=== PATIENT | female | born 1975 | race Caucasian/White ===

== ENCOUNTER 2016-12-01 05:54 | Day surgery (SDC) | payer OTHER ==
[~2016-12-01] VITALS: Ht 160 cm; Wt 77.8 kg
[2016-12-01] VITALS (11 sets, daily range): BP systolic 103–135; BP diastolic 58–70; PULSE 60–98; RESP 11–18; O2SAT 96–100
[~2016-12-01 05:54] MED LIST: Lactated Ringer's 1,000 ML IV ONE; PREN-100 PO
[2016-12-01] MEDS ORDERED: fentaNYL-PF 50 mCg/mL 2 mL Inj ONE (05:55)
[2016-12-01] MEDS ORDERED: Dexamethasone 4 mg/mL Inj ONE (05:55)
[2016-12-01] MEDS ORDERED: EPHEDrine/NS 5 mg/mL 5 mL Syringe ONE (05:55)
[2016-12-01] MEDS ORDERED: Propofol 10,000 mCg/mL 20 mL Inj ONE (05:55)
[2016-12-01] MEDS ORDERED: Ondansetron 2 mg/mL 2 mL Inj ONE (05:55)
[2016-12-01] MEDS ORDERED: CeFAZolin 2 Gm/50 mL D5W IV Premix IV ONE (06:00)
--- NOTE | 2016-12-01 07:21 | PCM.HPANE ---
Patient Data Date of Service: Dec 01, 2016 Surgeon Admitting Provider: Attending Provider:Kwasi Pineda MD Primary Care Physician:Shannan Field CNM Other Provider:Saulo Allen Anesthesia Reason for Visit Umbilical Hernia Ht/WT & BMI Height (Feet): 5 Height (Inches): 3.00 Weight (Kilograms): 77.8 Body Mass Index 30.00 Allergies Coded Allergies: No Known Allergies (Unverified , 11/27/16) Past Anesthesia History Anesthesia History: Denies:: Abnormal Airway, Anesthesia Reactions, Difficult Intubation, Fam Anesthesia Reaction, Malignant Hyperthermia Diabetes History Hx Diabetes?: No MRSA MRSA: No Medications Hypertension Medication: No Home Meds Incl Beta Clara: No Reported Medications Vits #90/Iron Fum/FA ( Formula Tablet)1 Each Tablet1 Each PO DAILY 11/27/16 History History of ENT Problems?: No HEENT History: Denies:: Abnormal Airway Cataracts Difficult Intubation Dysphagia Glaucoma Hearing Problem Sinus Problem TMJ Hx of Heart Problems?: No Cardiovascular History: Denies:: AICD Atrial Fibrillation Chest Pain Congestive Heart Failure Coronary Artery Disease Edema Heart Murmur Hypertension Irregular Heartbeat Pacemaker Peripheral Vascular Rheumatic Fever Thrombophlebitis Hx of Respiratory Problem?: No Respiratory History: Denies:: Asthma COPD Emphysema Oxygen Administration Pneumonia Pulmonary Embolism Tuberculosis Use of C-PAP Machine Hx Neurologic Problems?: Yes Neurological History: Denies:: Alzheimer's Disease CVA Dementia Dizziness Headaches Multiple Sclerosis Parkinson's Disease Seizures Hx of GI Problems?: No Gastrointestinal History: Denies:: Cirrhosis Gall Bladder Disease Gastroesphageal Reflux Gastrointestinal Bleeding Heartburn Hepatitis Hiatal Hernia Liver Disease Rectal Bleeding Other GI Pertinent History: umbilical hernia current admission problem Hx of Problems?: Yes Genitourinary History: Denies:: Kidney Stones Urinary Tract Infection Female Hx: Denies:: Currently Endometriosis Pelvic Inflammatory Problems with Breasts? Skin History: Denies:: History Skin Disorders? Pressure Ulcers Hx Musculoskeletal Problems?: No Musculoskeletal History: Denies:: Back Injury Fibromyalgia Joint Replacement Musculoskeletal Trauma Myasthenia Gravis Osteoarthritis Systemic Lupus Hx of Psycho/Social Problems?: No Psycho Social History: Denies:: Anxiety Hx Depression Hx Surgeries?: Yes (knee scope, tonsil) Hx Any Other Health Problems?: Yes Other History: Positive for:: Hospitalization (2008- ) Denies:: Cancer Endocrine Disease Thyroid Disease History Blood Transfusions: Positive for:: Accept Blood Products? Denies:: Blood Transfusions Hx Diabetes: No Hx Alcohol Use: NoHx Substance Use: No Smoking Status: Never Smoker Have You Smoked inLast 12 mo: No Stop/Bang S-Snoring: Do You Snore Loudly: No T-Tired: feel tired, fatigued: No O-Obsered: Observed not breath: No P-Blood Pressure: treated: No B- Body Mass Index > 35 kg/m2: No A- Age over 50: No N- Neck Large Circumference: No G- Gender Male: No KEVIN Total Score: 0 KEVIN Risk Assessment: Low Risk, <3 Yes Risk Assessment Category Category 1A: Patient has history of documented sleep apnea, and HAS NOT received any narcotic, sedative or anesthesia administration during this stay. Category 1B: Patient has history of documented sleep apnea, and HAS received any narcotic , sedative or anesthesia administration during this stay Category 2: Patient has SUSPECTED Obstructive Sleep Apnea, and HAS received any narcotic , sedative or anesthesia administration during this stay. Category 3: Patient has SUSPECTED Obstructive Sleep Apnea and HAS NOT received narcotic, sedative or anesthesia administration during this stay. Category 4: Outpatient in Procedural Areas with known sleep apnea or who screen positive for High Risk via the STOP/BANG questionnaire. Exam Exam Vital Signs Vital Signs Date Time Temp Pulse Resp B/P Pulse Ox O2 Delivery O2 Flow Rate FiO2 12/01/16 06:20 36.2 63 18 103/61 98 Room Air General Appearance: Alert, Oriented X3, Cooperative, No Acute Distress HEENT/AIRWAY: MP 2 Lungs: Normal Air Movement Heart: Exam Unremarkable Meds/Labs/Diagnostics Admission Meds Current Medications Lactated Ringer's (Lr) 1,000 ml @ 120 mls/hr Q8H20M ONCE IV Last administered on 12/01/16t 06:00; Start 12/01/16 at 05:00; Stop 12/01/16 at 13:19 Plan Impression Patient chart reviewed, patient interviewed and anesthestic plan with risks, benefits, and alternatives discussed, and informed consent obtained. NPO Status: 10PM ASA Physical Status: ASA1 Plus Emergency Anesthetic Plan: GA Bene/Risks/Altern/Consents: Yes HP Complete Prior to Induction: Yes Ramu Bennett MD Dec 01, 2016 07:08
[2016-12-01] MEDS ORDERED: Bupivacaine-MPF 0.5% 30 mL Inj INFILTRATE ONE (07:40)
[2016-12-01] MEDS ORDERED: Lactated Ringer's 500 ML IV PRN (07:56)
[2016-12-01] MEDS ORDERED: Lactated Ringer's 1,000 ML IV SCH (07:56)
[2016-12-01] MEDS ORDERED: EPHEDrine Sulfate 50 mg/mL Inj IVPUSH PRN (08:00)
[2016-12-01] MEDS ORDERED: MetoCLOpramide 5 mg/mL 2 mL Inj IVPUSH PRN (08:00)
[2016-12-01] MEDS ORDERED: Labetalol 5 mg/mL 4 mL Inj IV PRN (08:00)
[2016-12-01] MEDS ORDERED: Atropine 0.4 mg/mL Inj IVPUSH PRN (08:00)
[2016-12-01] MEDS ORDERED: HYDROmorphone 1 mg/mL Inj IVPUSH PRN (08:00)
[2016-12-01] MEDS ORDERED: hydrALAZINE 20 mg/mL Inj IVPUSH PRN (08:00)
[2016-12-01] MEDS ORDERED: Phenylephrine 10,000 mCg/mL Inj IVPUSH PRN (08:00)
[2016-12-01] MEDS ORDERED: Dexamethasone 4 mg/mL Inj IVPUSH PRN (08:00)
[2016-12-01] MEDS ORDERED: Ondansetron 2 mg/mL 2 mL Inj IVPUSH PRN (08:00)
--- NOTE | 2016-12-01 08:41 | PCM.SURGPO ---
Immediate Operative Note Date of Surgery: Dec 01, 2016 Pre Operative Diagnosis Incarcerated umbilical hernia Post Operative Diagnosis Incarcerated umbilical hernia Procedure Primary repair of Umbilical hernia Surgeon and Insulation And Flooring Assembler Surgeon: Kwasi Pineda MD Assistants: Flavia REID & Misty Yin MS3 Findings Incarcerated fat - 1.5cm defect. Fixed with 0 Prolenes Complications There were no periprocedural complications identified. Surgical Specimen Removed: No Specimen sent to Pathology: No Anesthetic Administered: GA Grafts, Implants: None Output, Estimated Blood Loss: 2 Blood Admin during surgery: No Attending Statement The Boring Machine Operator Horizontal was medically necessary for the successful completion of the operation Kwasi Pineda MD Dec 01, 2016 08:41
[2016-12-01] MEDS ORDERED: OXYC5TAB72 PO (08:42)
[2016-12-01] MEDS ORDERED: POLY17PO6 PO (08:42)
[2016-12-01] MEDS: fentaNYL-PF 50 mCg/mL 2 mL Inj IVPUSH PRN ×2 (08:56→09:08)
--- NOTE | 2016-12-01 08:56 | PCM.ANEP1 ---
Post Anesthesia Phase 1 PACU Phase 1 Assessment Date of Service: Dec 01, 2016 Vital Signs Vital Signs Date Time Temp Pulse Resp B/P Pulse Ox O2 Delivery O2 Flow Rate FiO2 12/01/16 08:50 88 14 134/70 98 Nasal Cannula 2 12/01/16 08:46 36.4 98 13 135/68 100 Nasal Cannula 4 12/01/16 06:20 36.2 63 18 103/61 98 Room Air Anesthetic Administered: GA Level of Alertness: Sleepy, easy to arouse MAYERS's with Equal Strength: Yes Pain: No Nausea or Vomiting: No Oxygen Delivery: Nasal Cannula Lungs: Normal Air Movement Ramu Bennett MD Dec 01, 2016 08:56
--- NOTE | 2016-12-01 09:48 | OP ---
[address] [address] OPERATIVE REPORT PATIENT: BRIAN DOLL : 1975 MR#: [id number] ADMIT: 12/01/2016 JOB ID: [id number] DATE OF SURGERY: 12/01/2016 SURGEON: Kwasi Pineda MD SENIOR CAREGIVER: Flavia Kebede PA-C and Misty Yin MS-3 PREOPERATIVE DIAGNOSIS(ES): Incarcerated umbilical hernia. POSTOPERATIVE DIAGNOSIS(ES): Incarcerated umbilical hernia. PROCEDURE PERFORMED: Open primary repair of incarcerated umbilical hernia. COMPLICATIONS: None. ANESTHESIA: LMA with local. INDICATIONS: The patient is a 40-year-old lady who I initially met a year ago in November 2015. She has had a history of an umbilical hernia during for over 10 years and by the time I saw her back she was again with her 7th child so we decided to wait until delivery and after discussing the risks, benefits, and alternatives, she is here today for open repair possibly with mesh. PROCEDURE DETAILS: She was placed in supine position. Underwent smooth induction of general anesthesia. Abdomen was prepped and draped in the usual sterile fashion. Surgical time-out was undertaken using safety checklist, and all were in agreement. We began by making an infraumbilical curvilinear incision and divided the skin and subcutaneous tissue and dissected the obvious umbilical hernia sac circumferentially away from the subcutaneous fat. After that I detached the sac from the skin and attempted to reduce the hernia and was not successful. At that point I opened the sac and excised a small piece of incarcerated fat and after that I was able to reduce the rest of the hernia. After that I defined the fascial edges by dissecting the hernia and the sac away from the fascia and then closed the defect with interrupted 0-Prolene sutures. The closure came together well without any obvious tension. After ensuring hemostasis, I recreated the umbilical stalk by anchoring the skin to the fascia and then closed the skin in layers of 3-0 Vicryl, 4-0 interrupted, followed by 4-0 Monocryl subcuticular. Steri-Strips and sterile dressing were applied. Patient was recovered from anesthesia and was taken to the recovery room in stable condition. CUAUHTEMOC
--- NOTE | 2016-12-01 10:04 | PCM.ANEP2 ---
Post Anesthesia Evaluation ASA/CMS Post Anesthesia Date of Service: Dec 01, 2016 VS in Patient's Normal Range?: Yes Resp Stable; Airway Patent?: Yes CV Function & Hydration Stable: Yes Mental Status Recovered?: Yes Pain control Satisfactory?: Yes N/V Control Satisfactory?: Yes Ramu Bennett MD Dec 01, 2016 10:04
[2016-12-02] MEDS ORDERED: Polyethylene Glycol (PEG) 17 Gm Powder PO SCH (08:30)
== END 2016-12-01 23:59 | disposition home or self-care (01) ==
LOC: SAS 05:54
PROVIDERS: ATTEND Student in an Organized Health Care Education/Training Program
DX: K42.0 Umbilical hernia with obstruction, without gangrene (principal); N39.3 Stress incontinence (female) (male)
CPT/HCPCS: 49585; J0690; J1100; J2405; J7120

== ENCOUNTER 2017-04-03 07:12 | Day surgery (SDC) | payer OTHER ==
[2017-04-03] VITALS (7 sets, daily range): BP systolic 94–147; BP diastolic 52–76; PULSE 63–96; RESP 13–18; O2SAT 97–100
[~2017-04-03] VITALS: Ht 162.6 cm; Wt 75.8 kg
[2017-04-03] MEDS: Lactated Ringer's 1,000 ML IV SCH ×2 (07:10→09:17)
[~2017-04-03 07:12] MED LIST changes: +Clindamycin 600 mg/50 mL D5W IV SCH; -Lactated Ringer's 1,000 ML IV ONE
[2017-04-03] MEDS ORDERED: Propofol 10,000 mCg/mL 20 mL Inj ONE ×2 (07:13)
[2017-04-03] MEDS ORDERED: Dexamethasone 4 mg/mL Inj ONE ×2 (07:13)
[2017-04-03] MEDS ORDERED: Ondansetron 2 mg/mL 2 mL Inj ONE ×2 (07:13)
[2017-04-03] MEDS ORDERED: Phenylephrine/NS-PF 100 mCg/mL 5 mL Syringe IVPUSH ONE (07:13)
[2017-04-03] MEDS ORDERED: fentaNYL-PF 50 mCg/mL 2 mL Inj ONE (07:13)
[2017-04-03] MEDS ORDERED: MetoCLOpramide 5 mg/mL 2 mL Inj ONE ×2 (07:13)
[2017-04-03] MEDS ORDERED: Lidocaine PF 1% 30 mL Inj ONE ×2 (07:13)
[2017-04-03] MEDS ORDERED: Phenylephrine/NS 100 mCg/mL 10 mL Syringe IVPUSH ONE (07:13)
--- NOTE | 2017-04-03 09:08 | PCM.HPANE ---
Patient Data Date of Service: April 03, 2017 Surgeon Admitting Provider: Attending Provider:Kaela Burden MD Primary Care Physician:Shannan Field CNM Other Provider:Saulo Allen Anesthesia Reason for Visit Female Stress Incontinence Ht/WT & BMI Height (Feet): 5 Height (Inches): 4 Weight (Kilograms): 75.8 Body Mass Index 28.00 Allergies Coded Allergies: codeine (Verified Adverse Reaction, Severe, hot, itchy, 03/31/17) Uncoded Allergies: narcotic antagonist (Adverse Reaction, Severe, itching,rash,dizziness, 03/31) Past Anesthesia History Anesthesia History: Denies:: Abnormal Airway, Anesthesia Reactions, Difficult Intubation, Fam Anesthesia Reaction, Fam Malignant Hypertherm, Malignant Hyperthermia Diabetes History Hx Diabetes?: No MRSA MRSA: No Medications Hypertension Medication: No Home Meds Incl Beta Clara: No Reported Medications [no med's] No Conflict Check 04/03/17 Discontinued Reported Medications Vits #90/Iron Fum/FA ( Formula Tablet)1 Each Tablet1 Each PO DAILY 11/27/16 History History of ENT Problems?: Yes HEENT History: Denies:: Abnormal Airway Cataracts Difficult Intubation Dysphagia Hearing Problem Sinus Problem TMJ Denture Type: None Teeth Condition: Broken Teeth Tooth Decay Missing Teeth Other HEENT Pertinent History: S/P TONSILLECTOMY Hx of Heart Problems?: Yes Cardiovascular History: Denies:: AICD Atrial Fibrillation Chest Pain Congestive Heart Failure Edema Heart Murmur (ECHO 1999,12/2007, 05/2009 EF 60%-CANNOT RULE OUT SMALL PFO) Hypertension Irregular Heartbeat Pacemaker Rheumatic Fever Thrombophlebitis Hx of Respiratory Problem?: No Respiratory History: Denies:: Asthma COPD Emphysema Oxygen Administration Pneumonia Pulmonary Embolism Tuberculosis Use of C-PAP Machine Hx Neurologic Problems?: Yes Neurological History: Positive for:: Dementia (HOSPITALIZED 05/2009 FOR ACUTE DEMENTIA) Headaches (BASILAR MIGRAINE W/ LOC HOSPITALIZED) Denies:: Alzheimer's Disease CVA Dizziness Multiple Sclerosis Parkinson's Disease Seizures Other Neurological Pertinent: two episodes of acute encephalopathy 2008, 2015 - both resolved - ? PFO ? other causes - first episode attributed to atypical migraine, second episode attributed to anxiety; associated also with hemiparesis and/or neuropathy Hx of GI Problems?: Yes Gastrointestinal History: Denies:: Gastroesphageal Reflux Other GI Pertinent History: S/P UMBILICAL HERNIA RPR Hx of Problems?: Yes Genitourinary History: Denies:: Kidney Stones Urinary Tract Infection Female Hx: Denies:: Currently Endometriosis Pelvic Inflammatory Problems with Breasts? Skin History: Denies:: History Skin Disorders? Pressure Ulcers Hx Musculoskeletal Problems?: Yes Musculoskeletal History: Positive for:: Musculoskeletal Trauma (S/P RT KNEE SCOPE) Denies:: Back Injury Joint Replacement Systemic Lupus Hx of Psycho/Social Problems?: Yes Psycho Social History: Positive for:: Anxiety (INTERMITTANT - not Rx'd) Denies:: Hx Depression Hx Surgeries?: Yes (knee scope, tonsil,UMBILICAL HERNIA RPR) Hx Any Other Health Problems?: Yes Other History: Positive for:: Hospitalization (2008- ) Denies:: Cancer Endocrine Disease Thyroid Disease History Blood Transfusions: Denies:: Blood Transfusions Hx Diabetes: No Hx Alcohol Use: NoHx Substance Use: No Smoking Status: Never Smoker Have You Smoked inLast 12 mo: No Stop/Bang Treated for Sleep Apnea?: No Do You Have a CPAP Machine?: No S-Snoring: Do You Snore Loudly: No T-Tired: feel tired, fatigued: Yes O-Obsered: Observed not breath: No P-Blood Pressure: treated: No B- Body Mass Index > 35 kg/m2: No A- Age over 50: No N- Neck Large Circumference: No G- Gender Male: No KEVIN Total Score: 1 KEVIN Risk Assessment: Low Risk, <3 Yes Risk Assessment Category Category 1A: Patient has history of documented sleep apnea, and HAS NOT received any narcotic, sedative or anesthesia administration during this stay. Category 1B: Patient has history of documented sleep apnea, and HAS received any narcotic , sedative or anesthesia administration during this stay Category 2: Patient has SUSPECTED Obstructive Sleep Apnea, and HAS received any narcotic , sedative or anesthesia administration during this stay. Category 3: Patient has SUSPECTED Obstructive Sleep Apnea and HAS NOT received narcotic, sedative or anesthesia administration during this stay. Category 4: Outpatient in Procedural Areas with known sleep apnea or who screen positive for High Risk via the STOP/BANG questionnaire. Exam Exam Vital Signs Vital Signs Date Time Temp Pulse Resp B/P Pulse Ox O2 Delivery O2 Flow Rate FiO2 04/03/17 07:42 36.2 64 18 99/55 97 Room Air General Appearance: Alert, Oriented X3, Cooperative, No Acute Distress HEENT/AIRWAY: MP 2, Neck Movement (FROM), Mouth Opening (>3), Other (tmd>3) Lungs: Clear to Auscultation, Normal Air Movement Heart: Exam Unremarkable, Regular Rate/Rhythm, Normal S1, Other (SPLIT S2) Meds/Labs/Diagnostics Admission Meds Current Medications Lactated Ringer's (Lr) 1,000 ml @ 120 mls/hr Q8H20M IV Last administered on t 07:10; Start 04/03/17 at 05:00; Stop 04/03/17 at 13:19 Plan Impression Patient chart reviewed, patient interviewed and anesthestic plan with risks, benefits, and alternatives discussed, and informed consent obtained. ASA Physical Status: ASA2 Mod Systemic Disease Anesthetic Plan: GA Bene/Risks/Altern/Consents: Yes HP Complete Prior to Induction: Yes Derek sOullivan MD April 03, 2017 09:08
[2017-04-03] MEDS ORDERED: no med's (09:14)
[2017-04-03] MEDS ORDERED: Lactated Ringer's 1,000 ML IV SCH (09:33)
[2017-04-03] MEDS ORDERED: Lactated Ringer's 500 ML IV PRN (09:33)
[2017-04-03] MEDS ORDERED: Ondansetron 2 mg/mL 2 mL Inj IVPUSH PRN (09:35)
[2017-04-03] MEDS ORDERED: MetoCLOpramide 5 mg/mL 2 mL Inj IVPUSH PRN (09:35)
[2017-04-03] MEDS ORDERED: HYDROmorphone 1 mg/mL Inj IVPUSH PRN (09:35)
[2017-04-03] MEDS ORDERED: EPHEDrine Sulfate 50 mg/mL Inj IVPUSH PRN (09:35)
[2017-04-03] MEDS ORDERED: Phenylephrine 10,000 mCg/mL Inj IVPUSH PRN (09:35)
[2017-04-03] MEDS ORDERED: Dexamethasone 4 mg/mL Inj IVPUSH PRN (09:35)
[2017-04-03] MEDS ORDERED: Bupivacaine-MPF 0.5% W/EPI 30 mL Inj INJ ONE (09:40)
[2017-04-03] MEDS ORDERED: Gentamicin 40 mg/mL 2 mL Inj IRRIGATION ONE (09:40)
[2017-04-03] MEDS ORDERED: Estrogens Conjugated 30 Gm Vaginal Cream VAGINAL ONE (09:51)
[2017-04-03] MEDS ORDERED: HYDROcodone-APAP 5-325 mg Tablet PO PRN (10:25)
[2017-04-03] MEDS ORDERED: Ondansetron 8 mg ODT Tablet PO PRN (10:25)
[2017-04-03] MEDS: fentaNYL-PF 50 mCg/mL 2 mL Inj IVPUSH PRN ×2 (10:53→11:03)
--- NOTE | 2017-04-04 07:14 | OP ---
[address] [address] OPERATIVE REPORT PATIENT: BRIAN DOLL : 1975 MR#: [id number] ADMIT: 04/03/2017 JOB ID: [id number] DATE OF SURGERY: 04/03/2017 PROCEDURE: Transobturator tape mid urethral sling and cystoscopy. SURGEON: Kaela Burden MD ANESTHESIA: General. PREOPERATIVE DIAGNOSIS(ES): Female stress urinary incontinence. POSTOPERATIVE DIAGNOSIS(ES): Female stress urinary incontinence. INDICATIONS: The patient is a 41-year-old woman who is post child bearing, no more children at all, very bothered by her stress urinary incontinence with a little bit of urinary urgency, frequency, and overactive bladder symptoms, desiring definitive treatment for her stress urinary incontinence. She was counseled extensively about treatment options from conservative on to surgical. Also counseled extensively about sling materials, including synthetic mesh. Provided the AUA statement on polypropylene mesh slings and wished to proceed with the TOT sling. PROCEDURE IN DETAIL: After appropriate informed consent was obtained, the patient was brought to the operating room. She received IV antibiotics prior to onset of procedure. SCDs were placed. Adequate general anesthesia was induced. She was carefully placed in dorsal lithotomy position. All pressure points were carefully padded. Cleaned, prepped, and draped in the usual sterile fashion. A Sellers catheter was introduced in the bladder and allowed to drain and clamped out of the field. A weighted speculum was used. We infiltrated the area overlying the mid urethra with 4% Marcaine with epinephrine. I dissected sharply and bluntly out to the inferior pubic rami on the right and the left. Space was created large enough to allow the sling to pass. We made stab incisions overlying the superior and medial border of both obturator foramen. We then used the C hooks to perforate the exact inferior medial border of this, bringing the tip carefully out into the vaginal wound, first on the left and then on the right side of the patient lateral to the urethra to avoid buttonholing in the vaginal mucosa. We then scoped with 70 and 30 degree lens and found no perforations, no hematuria to suggest perforation. The scope was withdrawn, and 16-[place] Sellers catheter were placed. Then, the sling was tensioned very lightly underneath the mid urethra as per the instructions for the Coloplast Zac sling system. The tails were trimmed. The wound was irrigated out copiously itself. We used some direct pressure and then some FloSeal to aid in hemostasis. The patient was well vascularized at a relatively young age and had some expected healthy bleeding from the vaginal wound which was completely taken care of at the time of the conclusion of the operation. We closed the stab incisions with Dermabond and the vaginal wound with running 2-0 Vicryl suture. Vaginal packing was placed. Patient was left Sellers to gravity. She tolerated this all very well, was awakened, and taken in stable condition to the postanesthesia care unit.
--- NOTE | 2017-04-09 10:14 | PCM.ANEP1 ---
Post Anesthesia PACU Phase 1 Assessment Date of Service: April 09, 2017 Vital Signs 04/03/17 10:30 HR 91 RR 15 BP 147/62 SaO2 100% on simple mask Anesthetic Administered: GA Level of Alertness: Awake, talking MAYERS's with Equal Strength: Yes Pain: No Pain Scale Score: 0 Nausea or Vomiting: No CV Function & Hydration Stable: Yes Airway Device: none Oxygen Delivery: Simple Mask Lungs: Clear to Auscultation, Normal Air Movement PACU Phase 2 Assessment Complications: No Follow up Care: No Patient Instructions Provided: Yes Derek Osullivan MD April 09, 2017 10:14
== END 2017-04-03 23:59 | disposition home or self-care (01) ==
LOC: SAS 07:12
PROVIDERS: ATTEND Urology
DX: N39.3 Stress incontinence (female) (male) (principal); E66.3 Overweight
CPT/HCPCS: 57288; C1771; J1100; J1580; J2175; J2250; J2370; J2405; J2765; J3010; J7120